=== PATIENT | male | born 1995 | race Caucasian/White ===

== ENCOUNTER 2016-11-06 18:22 | Emergency (ER) | payer OTHER ==
[2016-11-06 19:08] VITALS: BP 135/69
[2016-11-06] MEDS ORDERED: CEPHALEXIN MONOHYDRATE 250 MG CAPSULE PO ONE (19:51)
[2016-11-06] MEDS ORDERED: SULFAMETHOXAZOLE/TRIMETHOPRIM 1 TAB TABLET PO ONE (19:51)
--- NOTE | 2016-11-06 20:11 | ERNOTE ---
Integumentary HPI - Narrative Date of Service: 11/06/16 - General Presenting Symptoms: abscess Time Seen by Provider: 11/06/16 19:50 Source: patient Exam Limitations: no limitations - Immun/Allergies/Home Medications Immunizations: IMMUNIZATION HX Immunizations Up to Date Yes History of Influenza Vaccine Yes Hx Pneumococcal Vaccination No Allergies/Adverse Reactions: Allergies Allergy/AdvReac Type Severity Reaction Status Date / Time No Known Allergies Allergy Unverified 11/06/16 19:02 Home Medications: HOME MEDICATIONS Cephalexin Monohydrate [Keflex] 1,000 mg PO Q12H #28 cap 11/06/16 [Last Taken Unknown] Fluoxetine HCl 80 mg PO DAILY 11/06/16 [Last Taken Unknown] Ranitidine HCl [Zantac] 150 mg PO BID 11/06/16 [Last Taken Unknown] Ropinirole HCl [Requip] 0.25 mg PO HS 11/06/16 [Last Taken Unknown] Sulfamethoxazole/Trimethoprim [Bactrim Ds] 1 tab PO BID #20 tab 11/06/16 [Last Taken Unknown] - History of Present Illness Narrative: Patient comes due to an area of swelling and induration on the medial mid tight area. That started 3 days ago Location: Reports: lower extremity - R Midial Mid Thight area Quality: Reports: painful Severity: mild Exposure: Reports: no cause identified Modifying Factors - (Improves): Reports: other - nothing Modifying Factors - (Worsens): Reports: scratching, other - pressing on it Associated Symptoms: Denies: petechiae, edema, fever, pallor, paresthesia, jaundice Prior Treatment: Denies: recently seen Review of Systems - Review of Systems Constitutional: Absent: fever, chills EYE: Present: no symptoms reported ENT: Present: no symptoms reported Respiratory: Present: no symptoms reported Cardiology: Present: no symptoms reported Gastrointestinal/Abdominal: Present: no symptoms reported Genitourinary: Present: no symptoms reported Musculoskeletal: Present: no symptoms reported Skin: Present: rash, lesions. Absent: lumps, change in color, change in hair/ nails Neurological: Present: no symptoms reported Endocrine: Present: no symptoms reported Hematologic/Lymphatic: Present: no symptoms reported Psych: Present: no symptoms reported - Patient's Past Medical History Patient History - Medical: Anxiety, Arthritis, Depression, GERD, Other Patient History - Cancer: No Hx of Cancer Patient History - Surgical Procedures: Back Surgery, Other - Social History Smoking Status: Never smoker Physical Exam - Physical Exam General Appearance: Present: wd/wn, alert, no apparent distress Ears, Nose, Throat: Present: normal ENT inspection, hearing grossly normal, normal pharynx Neck: Present: normal inspection, nontender Respiratory: Present: no respiratory distress, normal breath sounds, no accessory muscle use, chest nontender, lungs clear Cardiovascular/Chest: Present: regular rate, rhythm Gastrointestinal/Abdominal: Present: normal bowel sounds, nontender, soft Back Exam: Present: normal inspection Extremity Exam: Present: normal inspection, no edema, normal range of motion Neurological Exam: Present: alert, oriented, normal mood/affect, no motor/ sensory deficits Skin Exam: Present: skin rash - Patinet has a 0.5cm x 0.5cm on the R mid medial thight area. There is good pulse and sensation. Absent: diaphoresis, cyanosis, jaundice ED Progress - Vital Signs Patient's Vital Signs:: I have reviewed the patient's vital signs. Vital Signs: Vital Signs 11/06/16 19:05 Temperature 36.4 C L Pulse Rate 88 Respiratory 18 Rate Blood Pressure 135/69 O2 Sat by Pulse 97 Oximetry - Progress/Reassessment Chief Complaint: Abscess Departure Clinical Impression: Abscess Cellulitis Qualifiers: Site of cellulitis: extremity Site of cellulitis of extremity: lower extremity Laterality: right Qualified Code(s): L03.115 - Cellulitis of right lower limb - Departure Disposition: Home self-care Condition: Stable Instructions: Abscess, [id number] Referrals: Clover Hammond MD [Staff Physician] - Prescriptions: Cephalexin Monohydrate [Keflex] 1,000 mg PO Q12H #28 cap Sulfamethoxazole/Trimethoprim [Bactrim Ds] 1 tab PO BID #20 tab
[2016-11-06] MEDS ORDERED: SULFAMETHOXAZOLE/TRIMETHOPRIM 1 TAB TABLET ONE (20:12)
[2016-11-06] MEDS ORDERED: CEPHALEXIN MONOHYDRATE 250 MG CAPSULE ONE ×2 (20:12→20:18)
== END 2016-11-06 20:24 | disposition home or self-care (01) ==
LOC: ER 18:22
DX: L03.115 Cellulitis of right lower limb (principal); L02.415 Cutaneous abscess of right lower limb